=== PATIENT | male | born 1955 | race Caucasian/White ===

== ENCOUNTER 2017-01-13 12:19 | Outpatient (CLI) | payer OTHER ==
--- NOTE | 2017-01-13 13:52 | RAD ---
RIGHT SHOULDER THREE VIEWS HISTORY: Right shoulder pain. FINDINGS: There are postop changes of right rotator cuff repair. No fracture, dislocation, or bony destructio n is identified. POS: [facility]
== END 2017-01-13 12:20 | disposition home or self-care (01) ==
LOC: MADRAD 12:19
PROVIDERS: ATTEND Family Medicine
DX: M25.511 Pain in right shoulder (principal)

== ENCOUNTER 2017-07-09 11:29 | Outpatient (CLI) | payer OTHER ==
[2017-07-09 12:05] LABS: Hemoglobin A1c 5.4 % (4.0-6.0)
[2017-07-09 12:08] LABS: ALT (SGPT) 31 U/L (8-55); AST (SGOT) 24 U/L (5-34); Albumin 4.2 g/dL (3.4-4.8); Alkaline Phosphatase 86 U/L (40-150); Anion Gap 15 mmol/L (10-20); BUN (Urea Nitrogen) 17 mg/dL (8.4-25.7); Bilirubin, Total 0.4 mg/dL (0.2-1.2); Calc. Creatinine Clearance 0 mL/min (70-130); Calcium 9.8 mg/dL (7.8-10.44); Carbon Dioxide 24 mmol/L (23-31); Cardiac Risk 6.1 (Less than 4.5); Chloride 106 mmol/L (98-107); Cholesterol 244 mg/dl (< 200 Desired); Estimated GFR-MDRD 70; Globulin 3.6 g/dL (2.4-3.5); Glucose 107 mg/dL (80-115); HDL Cholesterol 40 mg/dL (>60 Neg Risk); LDL Cholesterol, Calculated 151 mg/dL; Potassium 4.7 mmol/L (3.5-5.1); Protein, Total 7.8 g/dL (5.8-8.1); Sodium 140 mmol/L (136-145); Triglycerides 263 mg/dL (Less than 150)
[2017-07-09 12:25] LABS: Manual Diff?? YES; Mean Corpuscular HGB CONC 33.5 g/dL (32.0-36.0); Mean Corpuscular Hemoglobin 31.5 pg (27.0-31.0); Mean Platelet Volume 8.4 fL (7.4-10.4); Platelet Count 295 thou/uL (130-400); RBC Distribution Width 13.1 % (11.5-14.5); Red Blood Cell (RBC) Count 4.76 mill/uL (4.70-6.10); White Blood Cell (WBC) Count 11.4 thou/uL (4.8-10.8)
[2017-07-09 12:26] LABS: Anisocytosis SLIGHT = 6-15 cells (100X) (0-5/hpf); Band 4 % (5-11); Eosinophils 4 % (0-10); Lymphocytes 23 % (21-51); MDiff Complete? YES; Monocytes 9 % (0-10); Neutrophil 60 % (42-75); PLT Morphology Comment Appears Adequate
[2017-07-09 13:03] LABS: PSA-Asymptomatic (SCREENING) 0.93 ng/mL (0-4.0); Thyroid Stimulating Hormone 2.2132 uIU/mL (0.35-4.94); Vitamin D, 25 Hydroxy 26.3 ng/ml (> 30.0)
== END 2017-07-09 11:30 | disposition home or self-care (01) ==
LOC: MADLABBHPM 11:29
PROVIDERS: ATTEND Family Medicine
DX: Z00.00 Encounter for general adult medical examination without abnormal findings (principal)
CPT/HCPCS: 36415; 80053; 80061; 82306; 83036; 84443; 85025; G0103

== ENCOUNTER 2022-10-13 16:47 | Outpatient (CLI) | payer MEDICARE | END 2022-10-13 16:48 | disposition home or self-care (01) | LOC: MADLAB 16:47 | PROVIDERS: ATTEND Internal Medicine | DX: R07.9 Chest pain, unspecified (principal) | CPT/HCPCS: 93005; 93010 ==